=== PATIENT | female | born 1990 | race Caucasian/White ===

== ENCOUNTER 2017-10-25 17:34 | Emergency (ER) | payer OTHER ==
[2017-10-25 17:44] VITALS: BP 130/72
[2017-10-25 18:17] LABS: BILIRUBIN,URINE NEGATIVE (NEGATIVE); GLUCOSE, URINE (UA) NEGATIVE (NEGATIVE); KETONES,URINE (UA) NEGATIVE (NEGATIVE); LEUKOCYTE ESTERASE, URINE NEGATIVE (NEGATIVE); NITRITE,URINE NEGATIVE (NEGATIVE); OCCULT BLOOD,URINE NEGATIVE (NEGATIVE); PH,URINE 5.5 PH (5.0-7.5); PROTEIN,URINE NEGATIVE (NEGATIVE); UROBILINOGEN,URINE 0.2 (NORMAL) E.U./dL (NORMAL)
[2017-10-25 18:20] LABS: CLARITY,URINE CLEAR (CLEAR)
[2017-10-25 18:21] LABS: HCG UR QUAL NEGATIVE
[2017-10-25 18:41] LABS: BASOPHILS % (AUTO) 0.6 %; EOSINOPHILS # (AUTO) 0.2 10^3/uL (0.0-0.7); EOSINOPHILS % (AUTO) 2.2 %; HGB - HEMOGLOBIN 13.4 g/dL (12.0-16.0); LYMPHOCYTES # (AUTO) 2.9 10^3/uL (1.5-3.5); LYMPHOCYTES % (AUTO) 41.7 %; MEAN CORPUSCULAR HEMOGLOBIN 29.8 pg (27.0-31.0); MEAN CORPUSCULAR HGB CONC 32.9 g/dL (32.0-36.0); MEAN CORPUSCULAR VOLUME 90.5 fL (81.0-99.0); MEAN PLATELET VOLUME 8.1 fL (7.9-10.8); MONOCYTES # (AUTO) 0.5 10^3/uL (0.0-1.0); MONOCYTES % (AUTO) 7.5 %; NEUTROPHILS # (AUTO) 3.4 10^3/uL (1.5-6.6); PLT - PLATELET COUNT 266 10^3/uL (130-450); RED CELL DISTRIBUTION WIDTH 13.5 % (12.0-15.0); WHITE BLOOD COUNT 7.1 x10^3/uL (4.8-10.8)
[2017-10-25] MEDS ORDERED: SOAP SUDS ENEMA 1 EACH RC ONE (18:45)
[2017-10-25 18:53] LABS: ALBUMIN 4.5 g/dL (3.2-5.5); ALBUMIN/GLOBULIN RATIO 1.4 (1.0-2.2); BILIRUBIN,TOTAL 0.5 mg/dL (0.2-1.0); CALCIUM 8.3 mg/dL (8.5-10.3); CREATININE 0.8 mg/dL (0.4-1.0); TOTAL PROTEIN 7.8 g/dL (6.7-8.2)
[2017-10-25] MEDS ORDERED: IBUPROFEN 800 MG TABLET PO STA (18:57)
--- NOTE | 2017-10-25 18:57 | ED Physician Documentation ---
History of Present Illness - Stated complaint Stated Complaint: FEMALE , SIDE/BACK PX - Chief complaint Chief Complaint: General - History obtained from History obtained from: Patient, Family - History of Present Illness Timing: How many weeks ago (1) Pain level max: 5 Pain level now: 5 Improved by: nothing Worsened by: nothing - Additonal information Additional information: Patient is a 27-year-old female who presents to the emergency department with constipation for the past week or so. Saw her PCP, acute abdominal series performed which showed a ball of stool. No obstruction. She was given magnesium citrate but this did not help. Has needed enemas in the past. Has had problems with constipation her whole life. Has had no vomiting. No fevers. T-max was 99. She took Tylenol earlier today for cramping. Denies any possibility of . Review of Systems Ten Systems: 10 systems reviewed and negative Constitutional: denies: Fever, Chills Ears: denies: Ear pain Nose: denies: Rhinorrhea / runny nose, Congestion Throat: denies: Sore throat Cardiac: denies: Chest pain / pressure Respiratory: denies: Cough GI: reports: Nausea. 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 - Present Medications Home Medications: Ambulatory Orders Medication Instructions Recorded Confirmed Bcp's 09/06/14 09/06/14 Ondansetron Odt [Zofran] 4 mg TL Q6H PRN #10 tablet 10/25/17 - Allergies Allergies/Adverse Reactions: Allergies Allergy/AdvReac Type Severity Reaction Status Date / Time Quinolones Allergy Unknown Verified 10/25/17 17:44 - Social History Does the pt smoke?: No Smoking Status: Never smoker Does the pt drink ETOH?: No Does the pt have substance abuse?: No - Immunizations Immunizations are current?: Yes - POLST Patient has POLST: No PD ED PE NORMAL - Vitals Vital signs reviewed: Yes - General General: Alert and oriented X 3, No acute distress - HEENT HEENT: Moist mucous membranes - Neck Neck: Supple, no meningeal sign - Cardiac Cardiac: RRR, Strong equal pulses - Respiratory Respiratory: No respiratory distress, Clear bilaterally - Abdomen Abdomen: Soft, Non tender, Non distended - Rectal Rectal: Other (TYLER Prieto present - normal rectal exam.) - Back Back: No CVA TTP, No spinal TTP - Derm Derm: Warm and dry - Neuro Neuro: Alert and oriented X 3 - Psych Psych: Normal mood, Normal affect Results - Vitals Vitals: Vital Signs - 24 hr 10/25/17 10/25/17 17:39 20:50 Temperature 36.9 C Heart Rate 62 60 Respiratory 16 16 Rate Blood Pressure 130/72 O2 Saturation 100 95 Oxygen O2 Source Room air - Labs Labs: Laboratory Tests 10/25/17 10/25/17 10/25/17 18:12 18:36 18:36 WBC 7.1 RBC 4.50 Hgb 13.4 Hct 40.7 MCV 90.5 MCH 29.8 MCHC 32.9 RDW 13.5 Plt Count 266 MPV 8.1 Neut # 3.4 Lymph # 2.9 Hall # 0.5 Eos # 0.2 Baso # 0.0 Absolute Nucleated RBC 0.01 Nucleated RBC % 0.1 Sodium 135 Potassium 3.6 Chloride 103 Carbon Dioxide 26 Anion Gap 6.0 BUN 7 Creatinine 0.8 Estimated GFR (MDRD) 85 L Glucose 82 Calcium 8.3 L Total Bilirubin 0.5 AST 28 ALT 39 Alkaline Phosphatase 44 Total Protein 7.8 Albumin 4.5 Globulin 3.3 Albumin/Globulin Ratio 1.4 Lipase 35 Urine Color LT. YELLOW Urine Clarity CLEAR Urine pH 5.5 Ur Specific [place] <=1.005 Urine Protein NEGATIVE Urine Glucose (UA) NEGATIVE Urine Ketones NEGATIVE Urine Occult Blood NEGATIVE Urine Nitrite NEGATIVE Urine Bilirubin NEGATIVE Urine Urobilinogen 0.2 (NORMAL) Ur Leukocyte Esterase NEGATIVE Ur Microscopic Review NOT INDICATED Urine Culture Comments NOT INDICATED Urine HCG, Qual NEGATIVE - Rads (name of study) CT abd/pelvis Radiology: Prelim report reviewed, EMP read contemporaneously, See rad report ( normal) PD MEDICAL DECISION MAKING - ED course Complexity details: reviewed results, re-evaluated patient, considered differential, d/w patient, d/w family ED course: Patient is a 27-year-old female who presents to the emergency department complaining of constipation. Not much relief with an enema. No stool was felt on rectal examination. She was also being to be nauseated over the past few days, therefore laboratory testing and CT scan are performed. Normal CT scan. No acute findings on laboratory testing. Tolerating p.o. without difficulty here. She does not appear constipated on the CT scan. She has had GI complaints for years, but has never seen a dental hygiene teacher. She may benefit from a referral to one for her bowel issues. Patient and family counseled regarding signs and symptoms for which I believe and urgent re-evaluation would be necessary. Patient with good understanding of and agreement to plan and is comfortable going home at this time This document was made in part using voice recognition software. While efforts are made to proofread this document, sound alike and grammatical errors may occur. Departure - Departure Disposition: 01 Home, Self Care Clinical Impression: Abdominal pain Qualifiers: Abdominal location: unspecified location Qualified Code(s): R10.9 - Unspecified abdominal pain Condition: Good Instructions: ED Abdominal Pain Unkn Cause Follow-Up: Donna Jackson MD [Primary Care Provider] - Within 1 week Prescriptions: Ondansetron Odt [Zofran] 4 mg TL Q6H PRN #10 tablet PRN Reason: Nausea / Vomiting Comments: Your labs and CT scan are normal today. You would likely benefit from a GI referral by your doctor to be evaluated for inflammatory bowel disease given your symptoms. Return if you worsen. Discharge Date/Time: 10/25/17 20:50
[2017-10-25] MEDS ORDERED: IOPAMIDOL-300 100 ML VIAL ONE (19:34)
[2017-10-25] MEDS ORDERED: IOPAMIDOL-300 100 ML VIAL IVP ONE (19:50)
--- NOTE | 2017-10-25 20:34 | CT Preliminary Report ---
Exam: CT ABDOMEN/PELVIS W/ IMPRESSION: No bowel obstruction, fluid collection or acute inflammatory process. [facility] SITE ID: [id number]
--- NOTE | 2017-10-25 20:34 | CT Report ---
EXAM: CT ABDOMEN AND PELVIS EXAM DATE: 10/25/2017 08:01 PM. CLINICAL HISTORY: Abd pain, nausea, no BM. COMPARISONS: None. TECHNIQUE: Routine helical CT imaging was performed through the abdomen and pelvis. IV contrast: 100M L ISOVUE 300. Enteric contrast: No. Reconstructions: Coronal and sagittal. In accordance with CT protocol optimization, one or more of the following dose reduction techniques w ere utilized for this exam: automated exposure control, adjustment of mA and/or KV based on patient s ize, or use of iterative reconstructive technique. FINDINGS: Lung Bases: Unremarkable. Liver: Normal. No masses. Gallbladder/Bile Ducts: Unremarkable. Spleen: Normal. Pancreas: Normal. Adrenal Glands: Normal. Kidneys: Normal. No masses or hydronephrosis. Peritoneal Cavity/Bowel: Normal. No free fluid, free air or adenopathy. No masses or acute inflammato ry process. No evidence of appendicitis. Pelvic Organs: Normal. The bladder and visualized pelvic organs are within normal limits. Vasculature: No aneurysms or other significant abnormality. Bones: L5 pars defects. Other: None IMPRESSION: No bowel obstruction, fluid collection or acute inflammatory process. [facility] Referring Provider Line: [phone] SITE ID: [id number]
== END 2017-10-25 20:50 | disposition home or self-care (01) ==
LOC: ED 17:34
DX: R10.9 Unspecified abdominal pain (principal)
CPT/HCPCS: 36415; 74177; 80053; 81003; 81025; 83690; 85025; 99284; A9270; Q9967; 81001; 87086

== ENCOUNTER 2019-03-17 16:46 | Emergency (ER) | payer OTHER ==
[2019-03-17] MEDS ORDERED: HYDROcod/ACETAM 5/325 MG TABLET PO STA (17:23)
--- NOTE | 2019-03-17 17:24 | ED Physician Documentation ---
PD HPI LOWER EXT INJURY - Stated complaint Stated Complaint: FELL DOWN STAIRS/LEG PX - Chief complaint Chief Complaint: Ext Problem - History of Present Illness PD HPI LOW EXT INJURY LOCATION: Other (28-year-old woman tripped and fell down some stairs at home just prior to arrival, she injured her left knee, right ankle, and left big toe. No other injuries. No head or neck injury. 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 - Present Medications Home Medications: Ambulatory Orders Medication Instructions Recorded Confirmed Bcp's 09/06/14 09/06/14 Ondansetron Odt [Zofran] 4 mg TL Q6H PRN #10 tablet 10/25/17 Hydrocodone/Acetaminophen 1 - 2 each PO Q6H PRN #10 tablet 03/17/19 [Hydrocodon-Acetaminophen 5-325] - Allergies Allergies/Adverse Reactions: Allergies Allergy/AdvReac Type Severity Reaction Status Date / Time Quinolones Allergy Unknown Verified 03/17/19 16:55 - Social History Does the pt smoke?: No Smoking Status: Never smoker Does the pt drink ETOH?: No Does the pt have substance abuse?: No - Immunizations Immunizations are current?: Yes - POLST Patient has POLST: No PD ED PE NORMAL - Vitals Vital signs reviewed: Yes - General General: Alert and oriented X 3, No acute distress - Extremities Extremities: Other (Right ankle is tender over the lateral malleolus, the foot and proximal fibula are nontender. The right knee is nontender. She has a scrape over the left knee with mild tenderness of the tibial plateau. No ligamentous laxity. Negative grind testing. Moderate tenderness of the left great toe. No tenderness of the left ankle.) - Neuro Neuro: Alert and oriented X 3, Normal speech Results - Vitals Vitals: Vital Signs - 24 hr 03/17/19 16:50 Temperature 36.8 C Heart Rate 71 Respiratory 18 Rate Blood Pressure 133/71 H O2 Saturation 100 Oxygen O2 Source Room air - Rads (name of study) X-rays of the right ankle, and left foot Radiology: EMP read contemporaneously (Normal) 4 view x-ray of the left knee Radiology: EMP read contemporaneously (Negative) PD MEDICAL DECISION MAKING - ED course ED course: 28-year-old woman fell down the stairs, she has only lower extremity and threes, major sites of pain are the right ankle, left great toe, left knee. Relevant x- rays are negative. She was able to ambulate with a walker. Departure - Departure Disposition: 01 Home, Self Care Clinical Impression: Sprain of left great toe Qualifiers: Encounter type: initial encounter Qualified Code(s): S93.502A - Unspecified sprain of left great toe, initial encounter Right ankle sprain Qualifiers: Encounter type: initial encounter Involved ligament of ankle: anterior talofibular ligament Qualified Code(s): S93.491A - Sprain of other ligament of right ankle, initial encounter Contusion of left knee Qualifiers: Encounter type: initial encounter Qualified Code(s): S80.02XA - Contusion of left knee, initial encounter Fall down stairs Qualifiers: Encounter type: initial encounter Qualified Code(s): W10.8XXA - Fall (on) (fro m) other stairs and steps, initial encounter Condition: Good Record reviewed to determine appropriate education?: Yes Instructions: ED Sprain Ankle W X Ray Prescriptions: Hydrocodone/Acetaminophen [Hydrocodon-Acetaminophen 5-325] 1 - 2 each PO Q6H PRN #10 tablet PRN Reason: pain Comments: Recheck with your doctor in a week if not better, return for new or worsening symptoms. You can use the walker as needed for a few days, but hopefully will not need it for more than a few days. Ibuprofen as needed for pain in addition to the prescription if necessary. Your blood pressure was elevated today on check into the emergency department. This does not mean that you have hypertension, it is a common phenomenon to come to the emergency department and have elevated blood pressure. I recommend that you see your primary care physician within the week to have it rechecked when you are feeling better.
--- NOTE | 2019-03-17 17:39 | XRAY Report ---
Reason: fall down stairs, ankle, foot knee pain Procedure Date: 03/17/2019 Accession Number: [id number] / [id number] Procedure: XR - Ankle 3 View RT CPT Code: FULL RESULT: EXAM: RIGHT ANKLE RADIOGRAPHY EXAM DATE: 03/17/2019 05:23 PM. CLINICAL HISTORY: Fall down stairs, ankle, foot knee pain. COMPARISON: None. TECHNIQUE: 3 views. FINDINGS: Bones: No acute fractures or suspicious bone lesions. Joints: No subluxations. Ankle mortise is preserved. Soft Tissues: Unremarkable. IMPRESSION: No acute radiographic abnormalities. [facility]
--- NOTE | 2019-03-17 17:40 | XRAY Report ---
Reason: fall down stairs, ankle foot knee pain Procedure Date: 03/17/2019 Accession Number: [id number] / [id number] Procedure: XR - Foot 3 View LT CPT Code: FULL RESULT: EXAM: LEFT FOOT RADIOGRAPHY EXAM DATE: 03/17/2019 05:24 PM. CLINICAL HISTORY: Fall down stairs, ankle foot knee pain. COMPARISON: None. TECHNIQUE: 3 views. FINDINGS: Bones: No acute fractures or suspicious bone lesions. Joints: No subluxations. Soft Tissues: Unremarkable. IMPRESSION: No acute radiographic abnormalities. [facility]
--- NOTE | 2019-03-17 18:11 | XRAY Report ---
Reason: fall inj Procedure Date: 03/17/2019 Accession Number: [id number] / [id number] Procedure: XR - Knee 4 View LT CPT Code: FULL RESULT: EXAM: LEFT KNEE RADIOGRAPHY EXAM DATE: 03/17/2019 05:38 PM. CLINICAL HISTORY: Fall inj. COMPARISON: None. TECHNIQUE: 4 views. FINDINGS: Bones: No acute fractures or suspicious bone lesions. Joints: No effusion. No subluxations. Joint spaces are preserved. Soft Tissues: Unremarkable. IMPRESSION: Unremarkable knee radiography. [facility]
[2019-03-17 18:29] VITALS: BP 129/79
== END 2019-03-17 18:42 | disposition home or self-care (01) ==
LOC: ED 16:46
DX: S93.502A Unspecified sprain of left great toe, initial encounter (principal); S93.491A Sprain of other ligament of right ankle, initial encounter; S80.02XA Contusion of left knee, initial encounter; W10.9XXA Fall (on) (from) unspecified stairs and steps, initial encounter; Y92.009 Unspecified place in unspecified non-institutional (private) residence as the place of occurrence of the external cause
CPT/HCPCS: 73564; 73610; 73630; 99282; 99284; A9270